=== PATIENT | male | born 2000 | race Caucasian/White ===

== ENCOUNTER 2021-10-11 12:30 | Outpatient (CLI) | payer BC | END 2021-10-11 12:31 | disposition home or self-care (01) | LOC: CSHLAB 12:30 | PROVIDERS: ATTEND Internal Medicine | DX: Z20.822 Contact with and (suspected) exposure to COVID-19 (principal) | CPT/HCPCS: 87811 ==

== ENCOUNTER 2021-10-24 10:50 | Outpatient (CLI) | payer BC | END 2021-10-24 10:51 | disposition home or self-care (01) | LOC: CSHLAB 10:50 | PROVIDERS: ATTEND Family Medicine | DX: Z20.822 Contact with and (suspected) exposure to COVID-19 (principal) | CPT/HCPCS: 87811 ==

== ENCOUNTER 2021-10-29 10:41 | Outpatient (CLI) | payer BC | END 2021-10-29 10:42 | disposition home or self-care (01) | LOC: CSHCP 10:41 | PROVIDERS: ATTEND Internal Medicine | DX: J45.909 Unspecified asthma, uncomplicated (principal) | CPT/HCPCS: 94060; 94726; 94729; 94760 ==

== ENCOUNTER 2021-11-14 15:26 | Outpatient (CLI) | payer BC | END 2021-11-14 15:27 | disposition home or self-care (01) | LOC: CSHCT 15:26 | PROVIDERS: ATTEND Internal Medicine | DX: J98.4 Other disorders of lung (principal) | CPT/HCPCS: 71250; 94618 ==